=== PATIENT | male | born 1955 | race African-American/Black ===

== ENCOUNTER 2017-03-06 22:17 | Emergency (ER) | payer OTHER ==
[~2017-03-06] VITALS: Ht 180.3 cm; Wt 81.6 kg
[2017-03-06 22:26] VITALS: BP 114/72
[2017-03-06] MEDS ORDERED: NKM (22:26)
--- NOTE | 2017-03-06 22:29 | Emergency Room Report ---
History of Present Illness General Chief Complaint: Laceration Source: Patient, EMS Present Illness HPI Is a 61-year-old male. He presents with chief complaint of head injury and alcohol intoxication. Patient has been drinking heavily tonight. He was going home and as he was walking up the steps he tripped and fell hitting his head. No loss of consciousness. His girlfriend called 911. Patient denies any pain. He sustained a laceration to the eyebrow forehead area. Allergies: Coded Allergies: No Known Allergies (Unverified , 03/06/17) Patient History Past Medical History: see triage record, old chart reviewed Past Surgical History: other Pertinent Family History: none Social History: Reports: alcohol use Immunizations: UTD Reviewed Nursing Documentation: PMH: Agreed, PSxH: Agreed Review of Systems Eye: Denies: blurred vision, eye pain ENT: Denies: ear pain, nose congestion, throat swelling Respiratory: Denies: cough, shortness of breath Cardiovascular: Denies: chest pain, palpitations Gastrointestinal: Denies: abdominal pain, diarrhea, nausea, vomiting Musculoskeletal: Denies: back pain, joint pain Skin: Denies: rash Neurological: Denies: headache, numbness Endocrine: Denies: increased thirst, increased urine Hematologic/Lymphatic: Denies: easy bruising All Other Systems: negative except mentioned in HPI Physical Exam Vital Signs Date Time Temp Pulse Resp B/P Pulse Ox O2 Delivery O2 Flow Rate FiO2 03/06/17 22:20 80 16 114/72 98 Room Air vitals normal Sp02 EP Interpretation: reviewed, normal General Appearance: well appearing, no apparent distress, alert, other - Intoxicated Head: normocephalic, other - 1.5 cm laceration just above the left Eyebrow. Gaping. No foreign body. Eyes: bilateral eye EOMI, bilateral eye PERRL ENT: hearing grossly normal, normal pharynx Neck: full range of motion, supple, no meningismus Respiratory: chest non-tender, lungs clear, normal breath sounds Cardiovascular #1: regular rate, rhythm, no murmur Gastrointestinal: normal bowel sounds, non tender, no mass, no organomegaly, no bruit, non-distended Musculoskeletal: back normal, gait/station normal, normal range of motion Psychiatric: mood/affect normal Skin: warm/dry Procedures Laceration/Wound Repair Laceration/Wound Repair : Consent: Verbal Wound Location: face Wound's Depth, Shape: into muscle Wound Length (cm): 2 Wound Explored: clean Irrigated w/ Saline (ccs): 500 Anesthesia: 1% Lidocaine Volume Anesthetic (ccs): 2 Wound Debrided: minimal Suture Size/Type: 4:0, other - Chromic Number of Sutures: 3 Patient Tolerated: Well Complications: None Medical Decision Making Diagnostic Impression: Primary Impression: Head injury, acute Qualified Codes: S09.90XA - Unspecified injury of head, initial encounter Additional Impressions: Forehead laceration Qualified Codes: S01.81XA - Laceration without foreign body of other part of head, initial encounter Alcohol intoxication Qualified Codes: F10.120 - Alcohol abuse with intoxication, uncomplicated ER Course Pt presents with head injury and laceration. No internal bleeding. No fracture. We'll discharge home. He is ambulating without any difficulty. He talking without any difficulty. CT/MRI/US Diagnostic Results CT/MRI/US Diagnostic Results : Imaging Test Ordered: CT head Impression no acute bleed. No fracture. As read by radiologist. Last Vital Signs Date Time Temp Pulse Resp B/P Pulse Ox O2 Delivery O2 Flow Rate FiO2 03/06/17 22:20 80 16 114/72 98 Room Air Status: improved Disposition: HOME, SELF-CARE Condition: Stable Patient Instructions: Laceration Care, Adult Additional Instructions: Follow up with your DrDinesh in 7 days. Abstain from drinking alcohol to excess. Return worse. ADITHYA ZEE M.D. Mar 06, 2017 22:29
[2017-03-06 23:15] VITALS: BP 114/72
--- NOTE | 2017-03-07 09:07 | Diagnostic Imaging Report ---
Indications: Trauma, status post fall Technique: Spiral acquisitions obtained through the brain. Angled axial and coronal 5 x 5 mm slices were reconstructed. Total dose length product 1382 mGycm. CTDI vol(s) 7 mGy Comparison: None Findings: There is left periorbital soft tissue swelling. Soft tissue defect indicates associated laceration. No underlying fracture demonstrated. No acute intracranial hemorrhage or edema. No mass effect or midline shift. There is minimal age-related enlargement of ventricles and extra-axial CSF spaces, and minimal periventricular chronic deep white matter ischemic change. Normal damon-white differentiation. The sinuses are unremarkable. Impression: Evidence of left periorbital soft tissue injury Negative for acute intracranial bleed or mass effect This agrees with the preliminary interpretation provided overnight by [facility]. The CT scanner at [facility] is accredited by the [employer] and the scans are performed using protocols designed to limit radiation exposure to as low as reasonably achievable to attain images of sufficient resolution adequate for diagnostic evaluation.
== END 2017-03-06 23:15 | disposition home or self-care (01) ==
LOC: EDBD 22:17 → EMR 22:48
DX: S09.90XA Unspecified injury of head, initial encounter (principal); S01.81XA Laceration without foreign body of other part of head, initial encounter; F10.120 Alcohol abuse with intoxication, uncomplicated; W10.9XXA Fall (on) (from) unspecified stairs and steps, initial encounter; Y93.9 Activity, unspecified; Y92.9 Unspecified place or not applicable
CPT/HCPCS: 12051; 70450; 99284; Z7502